=== PATIENT | male | born 1950 | race Caucasian/White ===

== ENCOUNTER → 2018-05-31 | Outpatient (REF) | payer MEDICARE, OTHER ==
[~2018-05-31] MED LIST: ALL DAY ALLG10 MG PO; AMLODIPINE5 MG PO; ASPIRIN 8181 MG PR; C 250 PO; CENTRUM SILVER ULTR1 PO; COQ-10400 MG PO; CR-PLUS500 MCG PO; LEVOTHYROXIN200 MCG PO; LISINOPRIL10 MG PO; METOPROL TAR25 MG PO; OMEGA 31000 MG PO; SIMVASTATIN40 MG PO; VITAMIN B-1100 M1 PO; VITAMIN B-12500 MCG PO
[2018-05-31 09:26] LABS: HEMATOCRIT 42.7 % (39.0-50.0); HEMOGLOBIN 14.6 g/dl (14.0-18.0); MEAN CELL VOLUME 89.9 fL CALC (80.0-100.0); MEAN CORPUSCULAR HGB 30.7 pG CALC (26.0-32.0); MEAN CORPUSCULAR HGB CONC 34.2 g/L CALC (32.0-36.0); RED BLOOD COUNT 4.75 mill/uL (4.70-6.10); RED CELL DISTRI WIDTH 12.9 % (11.5-15.5)
[2018-05-31 09:59] LABS: ALKALINE PHOSPHATASE 71 u/l (38-126); ANION GAP 12 (6-22 (CALC)); BILIRUBIN, TOTAL 0.4 mg/dL (0.0-1.4); BUN 24 mg/dL (8-23); BUN/CREATININE RATIO 29 (12-20 (CALC)); CALCULATED LDLCHOLESTEROL 77 mg/dL (62-129 (CALC)); CARBON DIOXIDE 31 mmol/l (22-30); CHLORIDE 102 mmol/l (95-108); CHOLESTEROL HDL RATIO 3.1 (<4.4 (CALC)); CREATININE 0.8 mg/dL (0.7-1.3); GFR > 60 ML/MIN (>=60 (CALC)); GFR FOR AFR.AMER. > 60 ML/MIN (>=60 (CALC)); HDL CHOLESTEROL 47 mg/dL (>=40); POTASSIUM 3.8 mmol/l (3.5-5.1); SGOT/AST 32 u/l (19-48); SODIUM 141 mmol/l (137-146); TOTAL CHOLESTEROL 148 mg/dl (0-199); TOTAL PROTEIN 6.7 g/dL (6.3-8.2); TOTAL TRIGLYCERIDES 116 mg/dl (30-149); VLDL CHOLESTROL 23 mg/dl (4-45 (CALC))
[2018-05-31 10:24] LABS: TSH, 3RD GENERATION 2.64 uIU/mL (0.47 - 4.68)
== END | disposition home or self-care (01) ==
LOC: LAB 07:59
PROVIDERS: ATTEND Internal Medicine
DX: E03.9 Hypothyroidism, unspecified (principal); E78.49 Other hyperlipidemia

== ENCOUNTER 2020-04-19 06:42 | Day surgery (SDC) | payer MEDICARE ==
[~2020-04-19] VITALS: Ht 185.4 cm; Wt 108.9 kg
[~2020-04-19 06:42] MED LIST changes: +ATORVASTATIN CA40 MG PO; +CIALIS20 MG PO; +FIBER ADULT GUM1 CHW PO; +GLUCOSAMINE1500 M1 PO; +LEVOTHYROXIN175 MC1 PO; +LISINOP/HCTZ1 TA1 PO; +MULTIVITAMI9 PO; +OMEPRAZOLE DR40 MG PO; +VITAMIN C500 M1 PO
[2020-04-19 08:42] VITALS: BP 169/75
== END 2020-04-19 08:55 | disposition home or self-care (01) ==
LOC: ENDO 06:42 → ORM 08:00 → ENDO 08:55
PROVIDERS: ATTEND Surgery
PROC: 0DBN8ZX Excision of Sigmoid Colon, Via Natural or Artificial Opening Endoscopic, Diagnostic (ICD-10-PCS; principal; 2020-04-19)
DX: Z12.11 Encounter for screening for malignant neoplasm of colon (principal); D17.5 Benign lipomatous neoplasm of intra-abdominal organs; K64.8 Other hemorrhoids; I10 Essential (primary) hypertension; Z86.010 Personal history of colon polyps; Z80.0 Family history of malignant neoplasm of digestive organs; Z11.59 Encounter for screening for other viral diseases